=== PATIENT | female | born 1970 | race African-American/Black ===

== ENCOUNTER 2020-06-09 07:06 | Day surgery (SDC) | payer OTHER ==
[2020-06-09] MEDS ORDERED: FERRIC CARBOXYMALTOSE 750 MG in SODIUM CHLORIDE 250 ML IVPB ONE (14:30)
[2020-06-09 16:39] VITALS: TEMP 98.2
[2020-06-09 16:40] VITALS: BP 136/71; PULSE 69
== END 2020-06-09 15:50 | disposition home or self-care (01) ==
LOC: JONCNONCHE 07:06
PROVIDERS: ATTEND Specialist
PROC: 3E033GC Introduction of Other Therapeutic Substance into Peripheral Vein, Percutaneous Approach (ICD-10-PCS; principal; 2020-06-09)
DX: D50.9 Iron deficiency anemia, unspecified (principal)
CPT/HCPCS: 96365; J1439

== ENCOUNTER 2020-06-23 07:07 | Day surgery (SDC) | payer OTHER ==
[2020-06-23] MEDS ORDERED: FERRIC CARBOXYMALTOSE 750 MG in SODIUM CHLORIDE 250 ML IVPB ONE (14:30)
[2020-06-23 16:11] VITALS: TEMP 98
[2020-06-23 16:12] VITALS: BP 136/71; PULSE 68
== END 2020-06-23 15:35 | disposition home or self-care (01) ==
LOC: JONCNONCHE 07:07
PROVIDERS: ATTEND Internal Medicine Hematology & Oncology
PROC: 3E033GC Introduction of Other Therapeutic Substance into Peripheral Vein, Percutaneous Approach (ICD-10-PCS; principal; 2020-06-23)
DX: D50.9 Iron deficiency anemia, unspecified (principal)
CPT/HCPCS: 96365; J1439